=== PATIENT | male | born 1980 | race Caucasian/White ===

== ENCOUNTER 2018-11-03 07:43 | Emergency (ER) | payer OTHER ==
[2018-11-03] MEDS ORDERED: Proparacaine 0.5% Ophth Soln 15 ML Bottle EYEBOTH STA (08:03)
[2018-11-03] MEDS ORDERED: Tetracaine HCl/PF 0.5% 4 ML Bottle EYEBOTH ONE (08:05)
[2018-11-03] MEDS ORDERED: Tetracaine HCl/PF 0.5% 4 ML Bottle ONE (08:06)
[2018-11-03] MEDS ORDERED: Erythromycin Base 0.5% Ophth Oint 1 GM Tube EYEBOTH ONE (08:29)
--- NOTE | 2018-11-03 08:36 | EDM.PDOC ---
ED HPI GENERAL MEDICAL PROBLEM - General Chief Complaint: Eye Problems Stated Complaint: PIECE OF METAL IN RIGHT EYE Time Seen by Provider: 11/03/18 08:34 - History of Present Illness INITIAL COMMENTS - FREE TEXT/NARRATIVE: 38 y/o male here with left eye pain. States that on Thursday he was at work and he felt something go into his eye.He initially applied water and was asymptomatic, however, this morning, he woke up with acute eye pain on left eye. [place] like there was a foreign body on globe. He could see there was a small foreign body on globe. No swelling, discharge. Endorses sensitivity to light. No oculomotor deficits. Pupil reactive to light bilaterally. States he has had prior trauma, foreign object to eyes where he had foreign body removed. left eye Pain Score (Numeric/FACES): 4 - Related Data Allergies Allergy/AdvReac Type Severity Reaction Status Date / Time No Known Allergies Allergy Verified 11/03/18 07:59 Home Meds: Home Meds . [No Known Home Meds] 11/03/18 [History] Past Medical History - Past Health History Medical/Surgical History: Denies Medical/Surgical History Social & Family History - Family History Family Medical History: Noncontributory - Tobacco Use Smoking Status *Q: Current Every Day Smoker Years of Tobacco use: 25 Packs/Tins Daily: 1 - Recreational Drug Use Recreational Drug Use: No ED ROS GENERAL - Review of Systems Review Of Systems: ROS reveals no pertinent complaints other than HPI. ED EXAM GENERAL W FULL EYE - Physical Exam Exam: See Below General Appearance: Alert, WD/WN, No Apparent Distress Eye Exam: Left Eye: Conjunctival Injection, Foreign Body (small foreing body on globe at 6 o'clock. Oculomotor functino intact.) Eyelids: Bilateral: Normal Appearance Conjunctiva & Sclera: Left: Injected Cornea Exam: Bilateral: Examined with Flourescein Extraocular Movements: Bilateral: Intact Pupillary Reaction: Bilateral: Brisk Course - Vital Signs Text/Narrative:: applied fluorescein and examined eyes with roberts lamp. Small foreign body on left globe at 6 o'clock. Removed small metal object with 18 gauge needle without complications. Last Recorded V/S: Last Vital Signs Temp 35.9 C 11/03/18 07:54 Pulse 74 11/03/18 07:54 Resp 16 11/03/18 07:54 BP 113/74 11/03/18 07:54 Pulse Ox 96 11/03/18 07:54 - Orders/Labs/Meds Meds: Medications Discontinued Medications Generic Name Dose Route Start Last Admin Trade Name Aysha PRTiffany Reason Stop Dose Admin Erythromycin 1 gm 11/03/18 08:29 Erythromycin 0.5% Ophth Oint EYEBOTH 11/03/18 08:30 ONETIME ONE Proparacaine HCl 1 ml 11/03/18 08:03 11/03/18 08:28 Proparacaine 0.5% Ophth Soln EYEBOTH 11/03/18 08:04 Not Given NOW STA Tetracaine HCl 1 ml 11/03/18 08:05 11/03/18 08:27 Tetracaine 0.5% Steri-Unit Jayne EYEBOTH 11/03/18 08:06 1 drop ASDIRECTED ONE Administration Tetracaine HCl Confirm 11/03/18 08:06 11/03/18 08:28 Tetracaine 0.5% Steri-Unit Jayne Administered 11/03/18 08:07 Not Given Dose 4 ml .ROUTE .STK-MED ONE Departure - Departure Time of Disposition: 08:34 Disposition: Home, Self-Care 01 Clinical Impression: Foreign body in eyeball, left - Discharge Information *PRESCRIPTION DRUG MONITORING PROGRAM REVIEWED*: Not Applicable *COPY OF PRESCRIPTION DRUG MONITORING REPORT IN PATIENT KAITY: Not Applicable Instructions: Eye Foreign Body, [id number] Referrals: PCP,None [Primary Care Provider] - Garrett Tim MD [Consulting Physician] - Forms: ED Department Discharge Additional Instructions: The following information is given to patients seen in the emergency department who are being discharged to home. This information is to outline your options for follow-up care. We provide all patients seen in our emergency department with a follow-up referral. The need for follow-up, as well as the timing and circumstances, are variable depending upon the specifics of your emergency department visit. If you don't have a primary care physician on staff, we will provide you with a referral. We always advise you to contact your personal physician following an emergency department visit to inform them of the circumstance of the visit and for follow-up with them and/or the need for any referrals to a consulting specialist. The emergency department will also refer you to a specialist when appropriate. This referral assures that you have the opportunity for follow-up care with a specialist. All of these measure are taken in an effort to provide you with optimal care, which includes your follow-up. Under all circumstances we always encourage you to contact your private physician who remains a resource for coordinating your care. When calling for follow-up care, please make the office aware that this follow-up is from your recent emergency room visit. If for any reason you are refused follow-up, please contact the [facility] Emergency Department at and asked to speak to the emergency department charge nurse. Apply antibiotic ointment 3-4 times a day for next 5 days. If not improving in next 48 hours, follow-up with ophthalmology.
== END 2018-11-03 08:51 | disposition home or self-care (01) ==
LOC: MW.ED 07:43
DX: T15.82XA Foreign body in other and multiple parts of external eye, left eye, initial encounter (principal); F17.210 Nicotine dependence, cigarettes, uncomplicated; X58.XXXA Exposure to other specified factors, initial encounter
CPT/HCPCS: 65205; 99283; A9270

== ENCOUNTER 2023-08-18 14:03 | Emergency (ER) | payer BC, OTHER ==
[2023-08-18] MEDS: Acetaminophen/HYDROcodone 325-5 MG Tab PO ONE (14:49)
[2023-08-18] MEDS: Diphtheria,Pertussis(Acell),Tetanus Vaccine 0.5 ML Syringe IM ONE (14:50)
== END 2023-08-18 15:33 | disposition home or self-care (01) ==
LOC: MW.ED 14:03
DX: S52.602A Unspecified fracture of lower end of left ulna, initial encounter for closed fracture (principal); Z75.8 Other problems related to medical facilities and other health care; Z23 Encounter for immunization; W01.0XXA Fall on same level from slipping, tripping and stumbling without subsequent striking against object, initial encounter
CPT/HCPCS: 29125; 71101; 73090; 73110; 73130; 90471; 90715; 99283; A9270